=== PATIENT | female | born 1985 | race Hispanic/Latino ===

== ENCOUNTER 2018-10-03 07:46 | Outpatient (CLI) | payer OTHER ==
--- NOTE | 2018-10-03 11:11 | ULT ---
OB ULTRASOUND: HISTORY: Supervision of with poor reporting. Evaluate for size and dates. COMPARISON: None. TECHNIQUE: Sagittal and transverse imaging of a gravid uterus is performed. FINDINGS: There is a single intrauterine gestation. presentation is breech. There is an anterior placen ta. The lower uterine segment does not demonstrate any evidence of previa. The cervical length is n ot measured. BIOMETRY: BPD: 4.8 cm (20 weeks 4 days). HEAD CIRCUMFERENCE: 18.07 cm (20 weeks 3 days). ABDOMINAL CIRCUMFERENCE: 15.64 cm (20 weeks 6 days). FEMUR LENGTH: 3.25 cm (20 weeks 1 day). AVERAGE AGE BY SONOGRAPHY: 20 weeks 2 days. ESTIMATED WEIGHT: 357.62 g. AMNIOTIC FLUID INDEX: 13.39 cm. There are heart tones with a rate of 150 beats per minute. SURVEY: The following structures are adequately demonstrated: Four-chamber heart. The remainder of the feta l survey is inadequate. IMPRESSION: 1. Inadequate survey. Follow-up imaging in one to two weeks is recommended. 2. Single intrauterine gestation, as detailed above. 3. Cervical length is not measured. POS: [facility]
== END 2018-10-03 07:47 | disposition home or self-care (01) ==
LOC: NAV ULT 07:46
PROVIDERS: ATTEND Family Medicine
DX: O09.292 Supervision of pregnancy with other poor reproductive or obstetric history, second trimester (principal); Z3A.20 20 weeks gestation of pregnancy
CPT/HCPCS: 76805

== ENCOUNTER 2019-02-22 06:38 | Emergency (ER) | payer OTHER ==
[2019-02-22 07:29] LABS: #Basophils 0.1 thou/uL (0.0-0.2); #Eosinphils 0.1 thou/uL (0.0-0.7); #Lymphocytes 1.6 thou/uL (1.20-3.40); #Monocytes 0.8 thou/uL (0.11-0.59); #Neutrophils 9.5 thou/uL (1.40-6.50); %Basophils 0.5 % (0.0-1.0); %Eosinophils 1.1 % (0.0-10.0); %Lymphocytes 13.2 % (21.0-51.0); %Monocytes 6.3 % (0.0-10.0); Hemoglobin 9.6 g/dL (12.0-16.0); Mean Corpuscular HGB CONC 32.2 g/dL (32.0-36.0); Mean Corpuscular Hemoglobin 28.5 pg (27.0-31.0); Mean Corpuscular Volume 88.8 fL (78.0-98.0); Mean Platelet Volume 6.5 fL (7.4-10.4); Platelet Count 337 thou/uL (130-400); RBC Distribution Width 11.9 % (11.5-14.5); Red Blood Cell (RBC) Count 3.35 mill/uL (4.20-5.40); White Blood Cell (WBC) Count 12.1 thou/uL (4.8-10.8)
[2019-02-22] MEDS ORDERED: Sodium Chloride 0.9% 1,000 ML ONE (07:29)
[2019-02-22] MEDS ORDERED: Ondansetron PF 4 MG/2 ML Vial ONE ×2 (07:29→07:32)
[2019-02-22] MEDS ORDERED: Ketorolac Tromethamine 30 MG/ML VIAL ONE (07:29)
[2019-02-22 07:31] LABS: Bilirubin Negative (Negative); Blood, Urine Large (Negative); Clarity Slightly Cloudy (Clear); Glucose, Urine (Dipstick) Negative (Negative); Leukocyte Small (Negative); Nitrite Negative (Negative); Protein, Urine (Dipstick) 30 mg/dL (Neg-Trace); Specific Gravity, Urine 1.015 (1.005-1.030); pH, Urine 6.5 (5.0-9.0)
[2019-02-22 07:32] LABS: Bacteria/HPF None Seen HPF (None Seen); RBC/HPF 21-50 HPF (0-3); WBC/HPF 0-3 HPF (0-3)
[2019-02-22 07:51] LABS: ALT (SGPT) 20 U/L (8-55); AST (SGOT) 16 U/L (5-34); Albumin 3.7 g/dL (3.5-5.0); Alkaline Phosphatase 180 U/L (40-150); Anion Gap 16 mmol/L (10-20); BUN (Urea Nitrogen) 9 mg/dL (7.0-18.7); Bilirubin, Total 0.5 mg/dL (0.2-1.2); Calc. Creatinine Clearance 0 mL/min (70-130); Calcium 9.1 mg/dL (7.8-10.44); Carbon Dioxide 23 mmol/L (22-29); Chloride 102 mmol/L (98-107); Estimated GFR-MDRD 81; Globulin 3.6 g/dL (2.4-3.5); Glucose 117 mg/dL (70-105); Lipase 11 U/L (8-78); Protein, Total 7.3 g/dL (6.0-8.3); Sodium 137 mmol/L (136-145)
--- NOTE | 2019-02-22 08:03 | CT ---
CT OF THE ABDOMEN AND PELVIS WITH IV CONTRAST INDICATION: Abdominal pain with fever COMPARISON: None FINDINGS: ABDOMEN: Lung bases: Clear Liver: No focal lesion. Gallbladder: Normal appearing. Pancreas: Normal. Adrenal glands: Normal. Spleen: Normal. Kidneys: There is a 1 cm exophytic hyperdense lesion off the posterior aspect of the left mid kidney on image 42 of series 2. There is slight heterogeneous and striated enhancement involving both kidneys likely related to the phase of contrast enhancement; however, pyelonephritis could have a sim ilar appearance. No hydronephrosis is demonstrated. Retroperitoneum of the upper abdomen: No lymphadenopathy or free fluid is identified. Pelvis: Small and large bowel: There is a normal appendix in the right lower quadrant of the abdomen. There i s nonspecific mild fluid within the right pericolonic gutter. There is also some mild inflammatory reticulation involving the right lower quadrant omentum. Bladder: Decompressed. Rectal and perirectal soft tissues:Normal. Reproductive structures: The uterus is enlarged and heterogeneous in appearance. There is the appeara nce of a lower abdominal wall Pfannenstiel incision. Findings may reflect sequela of recent state and prior . Free fluid in pelvis: Mild free fluid Lymphadenopathy pelvis: No lymphadenopathy is evident. Osseous structures: No acute osseous abnormality. No destructive osteolytic or osteoblastic lesion i s identified. IMPRESSION: 1. Enlarged heterogeneous uterus may reflect recent state. Recommend correlation with the patient's clinical history. There is postprocedural change most suspicious for fairly recent Pfannenstiel incision, likely indicative of a recent . With abdominal pain and fever, retain ed products of conception cannot be entirely excluded. Recommend consideration for pelvic ultrasound. 2. Nonspecific mild fluid in the pelvis, right pericolonic gutter with inflammatory reticulation in t he right lower quadrant mesentery. This all may be postprocedural in nature. 3. Slight heterogeneous appearance of the kidneys is likely related to phase of contrast enhancement. Bilateral pyelonephritis could have a similar appearance. As a conservative measure recommend correlation with the clinical examination and consideration for evaluation with a urinalysis. There i s a 1 cm exophytic lesion off the posterior aspect of left mid kidney that requires further evaluation. May reflect a proteinaceous cyst or solid renal mass. A nonemergent follow-up renal ultra sound is recommended.
[2019-02-22] MEDS ORDERED: Iopamidol 300 61% 100 ML VIAL FS ONE (09:00)
== END 2019-02-22 08:28 | disposition home or self-care (01) ==
LOC: NAV ERS 06:38
DX: R10.31 Right lower quadrant pain (principal)
CPT/HCPCS: 36415; 74177; 80053; 81003; 81015; 83690; 85025; 96361; 96374; 96375; J1885; J2405; J7050

== ENCOUNTER 2019-09-13 13:55 | Emergency (ER) | payer MEDICAID, OTHER | END 2019-09-13 14:43 | disposition home or self-care (01) | LOC: NAV ERS 13:55 | DX: J02.9 Acute pharyngitis, unspecified (principal) | CPT/HCPCS: 87081; 87430; 99283 ==

== ENCOUNTER 2020-03-04 14:23 | Emergency (ER) | payer MEDICAID, SELFPAY | END 2020-03-04 14:52 | disposition home or self-care (01) | LOC: NAV ERS 14:23 | DX: K11.20 Sialoadenitis, unspecified (principal) | CPT/HCPCS: 99283 ==

== ENCOUNTER 2020-03-04 14:54 | Outpatient (CLI) | payer OTHER ==
[2020-03-04 15:11] LABS: BHCG - Serum POSITIVE (NEGATIVE); Pregs Control Bar Appear? YES (CONTROL BAR)
== END 2020-03-04 14:55 | disposition home or self-care (01) ==
LOC: NAV LAB 14:54
DX: Z00.00 Encounter for general adult medical examination without abnormal findings (principal)
CPT/HCPCS: 84703

== ENCOUNTER 2023-12-06 14:43 | Emergency (ER) | payer SELFPAY | END 2023-12-06 15:18 | disposition home or self-care (01) | LOC: NAV ERS 14:43 | DX: F41.9 Anxiety disorder, unspecified (principal); E86.0 Dehydration | CPT/HCPCS: 99284 ==